=== PATIENT | female | born 1995 ===

== ENCOUNTER 2023-12-23 18:41 | Outpatient (REF) | payer MEDICAID, SELFPAY ==
--- OUTSIDE RECORDS SUMMARY | 2023-12-23 18:46 | XMS_ITS | Encounter Summary ---
Author Organization [facility] Address [address] [place] [address] Care Team Providers Care Quality Systems Engineer Name Role Phone Latonya Rey MD Primary Care Provid er Encounter Details Date Type Department Care Team (Late st Contact Info) Description 02/28/2020 Lab Requisition [facility] Pathology & Laboratory Medicine - [facility] [address] [place] [address] [address] [phone] Contact with and (suspected) exposure to other viral communicable diseases Social History Tobacco Use Types Packs/Day Years Used Date Smoking Tobacco: Never Assessed Sex and Gender Information Value Date Recorded Sex Assigned at Not on file Gender Identity Not on file Sexual Orientation Not on file documented as of this encounter Plan of Treatment Not on file documented as of this encounter Procedures Procedure Name Priority Date/Time Associated Diagnosis Comments DO NOT ORDER STANDALONE - BROAD COVID TEST Today 02/28/2020 17:30 EST Contact with and (suspected) exposure to other viral communicable diseases COVID-19 TESTING Today 02/28/2020 17:3 0 EST Contact with and (suspected) exposure to other viral communicable diseases documented in this encounter Results * DO NOT ORDER STANDALONE - BROAD COVID TEST (02/28/2020 17:30 EST) COVID-19 rt-PCR Result NEGATIVE Negative 03/01/2020 16:25 EST [facility] Comment: 2019-novel Coronavirus (2019-nCoV) not detected by the qRT-PCR assay. Consider testing for other respiratory viruses or re-collecting for 2019-nCoV testing. Note: Optimum timing for peak viral levels during infections caused by 2019-nCoV have not been determined. Collection of multiple specimens from the same patient may be necessary to detect the virus. Limitations Positive results are indicative of active infection with SARS-CoV-2 but do not rule out bacterial infection or co-infection with other viruses. The agent detected may not be the definite cause of disease. In addition, detection of viral RNA may not indicate the presence of infectious virus or that SARS-CoV-2 is the causative agent for clinical symptoms. Negative results do not preclude SARS-CoV-2 infection and should not be used as the sole basis for patient management decisions. Negative results must be combined with clinical observations, patient history, and epidemiological information. False negative results may also occur if amplification inhibitors are present in the specimen or if inadequate numbers of organisms are present in the specimen. Optimum specimen types and timing for peak viral levels during infections caused by SARS-CoV-2 have not been fully determined. Collection of multiple specimens (types and time points) from the same patient may be necessary to detect the virus. The test was validated for use with upper respiratory specimens obtained via nasopharyngeal or oropharyngeal swabs in VTM, UTM, M4, M5, M6, saline, and MTM media. The performance of this test has not been established for other specimens. Specimens collected using other FDA recommended Specimen Collection Materials listed in the FDA COVID-19 [employer] communication (June 21, 2019) are processed with the caveat that they were not all validated for use with this test and the result must be interpreted in this context. Furthermore, a false negative results may occur if a specimen is improperly collected, transported or handled. If the virus mutates in the RT-PCR target region, SARS-CoV-2 may not be detected or may be detected less predictably. Inhibitors or other types of interference may produce a false negative result. An interference study evaluating the effect of common cold medications was not performed. This test is not FDA-cleared but its performance characteristics were established by our CLIA-certified, CAP-accredited, high complexity laboratory in accordance with CLIA regulations, [employer] (CAP) guidelines (Jun 14, 2019), and FDA guidance (May 26, 2019). This test is only for use under the Food and Drug Administration's Emergency Use Authorization. Swab ENTIRE NASOPHARYNX / Unknown 02/28/2020 17:30 EST 02/28/2020 23:06 EST Jagdish Hines [facility] MICROBIOLOGY - GENE RAL ORDERABLES [facility] [place], [place] * COVID-19 TESTING (02/28/2020 17:30 EST) COVID-19 rt-PCR Result NEGATIVE Negative 03/01/2020 16:25 EST [facility] Comment: 2019-novel Coronavirus (2019-nCoV) not detected by the qRT-PCR assay. Consider testing for other respiratory viruses or re-collecting for 2019-nCoV testing. Note: Optimum timing for peak viral levels during infections caused by 2019-nCoV have not been determined. Collection of multiple specimens from the same patient may be necessary to detect the virus. Limitations Positive results are indicative of active infection with SARS-CoV-2 but do not rule out bacterial infection or co-infection with other viruses. The agent detected may not be the definite cause of disease. In addition, detection of viral RNA may not indicate the presence of infectious virus or that SARS-CoV-2 is the causative agent for clinical symptoms. Negative results do not preclude SARS-CoV-2 infection and should not be used as the sole basis for patient management decisions. Negative results must be combined with clinical observations, patient history, and epidemiological information. False negative results may also occur if amplification inhibitors are present in the specimen or if inadequate numbers of organisms are present in the specimen. Optimum specimen types and timing for peak viral levels during infections caused by SARS-CoV-2 have not been fully determined. Collection of multiple specimens (types and time points) from the same patient may be necessary to detect the virus. The test was validated for use with upper respiratory specimens obtained via nasopharyngeal or oropharyngeal swabs in VTM, UTM, M4, M5, M6, saline, and MTM media. The performance of this test has not been established for other specimens. Specimens collected using other FDA recommended Specimen Collection Materials listed in the FDA COVID-19 [employer] communication (June 21, 2019) are processed with the caveat that they were not all validated for use with this test and the result must be interpreted in this context. Furthermore, a false negative results may occur if a specimen is improperly collected, transported or handled. If the virus mutates in the RT-PCR target region, SARS-CoV-2 may not be detected or may be detected less predictably. Inhibitors or other types of interference may produce a false negative result. An interference study evaluating the effect of common cold medications was not performed. This test is not FDA-cleared but its performance characteristics were established by our CLIA-certified, CAP-accredited, high complexity laboratory in accordance with CLIA regulations, [employer] (CAP) guidelines (Jun 14, 2019), and FDA guidance (May 26, 2019). This test is only for use under the Food and Drug Administration's Emergency Use Authorization. Performing Lab [facility] 03/01/2020 16:25 EST [facility] Swab ENTIRE NASOPHARYNX / Unknown 02/28/2020 17:30 EST 02/28/2020 23:06 EST Jagdish Hines [facility] MICROBIOLOGY - [facility] ORDERABLES [facility] [address] [place] [address] [facility] [place], [place] documented in this encounter Visit Diagnoses Diagnosis Contact with and (suspected) exposure to other viral communicable diseases documented in this encounter Care Teams Quality Systems Engineer Relationship Specialty Start Date End Date Latonya Rey MD [address] [place] [id number] PCP - General 02/23/16 documented as of this encounter
--- OUTSIDE RECORDS SUMMARY | 2023-12-23 18:46 | XMS_ITS | Referral Summary ---
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 On OCPs x 5-6 months, periods +, not tolerating OCPs, stoped. Hypothalamic amenorrhea. Low BMI. ? Eating disorder, denies Celiac disease 08/17/2010 Overview: Not tested, symptomatic when exposed to gluten. Social History Tobacco Use Types Packs/Day Years Used Date Smoking Tobacco: Never Assessed Sex and Gender Information Value Date Recorded Sex Assigned at Not on file Gender Identity Not on file Sexual Orientation Not on file Last Filed Vital Signs Vital Sign Reading Time Taken Comments Blood Pressure 125/65 08/17/2010 1427 EDT Pulse 82 08/17/2010 1427 EDT Temperature - - Respiratory Rate - - Oxygen Saturation - - Inhaled Oxygen Concentration - - Weight 41.3 kg (91 lb 0.8 oz) 08/17/2010 1427 ED T Height 159.3 cm (5' 2.72) 08/17/2010 1427 EDT Body Mass Index 16.27 08/17/2010 1427 EDT Plan of Treatment Not on file Care Teams Silo Filler Relationship Specialty Start Date End Date Latonya Rey MD [address] [place] [address] PCP - General 02/23/16
--- OUTSIDE RECORDS SUMMARY | 2023-12-23 18:46 | XMS_ITS | Clinical Summary ---
Author Organization [facility] Address [address] [place] [id number] Care Team Providers Care Specialty Department Supervisor Name Role Phone Latonya Rey MD Primary [...] Not tested, symptomatic when exposed to gluten. Family History Medical History Relation Comments Celiac Disease Brother Celiac Disease Father Heart Attack Under 50 Maternal Grandmother at 43 High Blood Pressure Maternal Grandmother Thyroid Disease Maternal Grandmother ? High Blood Pressure Mother Infertility Mother Miscarriages / Stillbirths Mother Diabetes Other MGGM, MGGF T? Short Stature Other P second aunt Celiac Disease Paternal Aunt Celiac Disease Paternal Grandfather Celiac Disease Sister Elevated Lipids Neg Hx Menstrual Irregularity Neg Hx Pituitary Adenoma Neg Hx Prolactinoma Neg Hx SLE Neg Hx Relation Status Comments Brother Alive Father Alive Maternal Grandmother Mother Alive Other Paternal Aunt Paternal Grandfather Sister Alive Social History Tobacco Use Types Packs/Day Years Used Date Smoking Tobacco: Never Assessed Sex and Gender Information Value Date Recorded Sex Assigned at Not on file Gender Identity Not on file Sexual Orientation Not on file Obstetrics History Last Filed Vital Signs Vital Sign Reading [...] 16.27 08/17/2010 1427 EDT Plan of Treatment Health Maintenance Due Date Last Done Comments Hepatitis C Screen 1995 Hepatitis B Vaccine (1 of 3 - 19+ 3-dose series) 05/16 COVID-19 Vaccine (2022- season) 2022 Care Teams Specialty Department Supervisor Relationship Specialty Start Date End Date Latonya Rey MD [address] [place] [address] PCP - General 02/23/16
--- OUTSIDE RECORDS SUMMARY | 2023-12-23 18:46 | XMS_ITS | Encounter Summary ---
Author Organization [facility] Address [address] [place] [address] Care Team Providers Care Turf And Grounds Supervisor Name Role Phone Latonya Rey MD Primary Care Provid er Encounter Details Date Type Department Care Team (Late st Contact Info) Description 05/20/2020 Lab Requisition [facility] Pathology & [facility] - [facility] [address] [place] [address] Rand Linda MD [address] [place] [phone] Contact with and (suspected) exposure to other [...] Procedure Name Priority Date/Time Associated Diagnosis Comments ZZCOVID-19 TEST [facility] PCR Today 05/20/2020 13:35 EST Contact with and (suspected) exposure to other viral communicable diseases COVID-19 TESTING Today 05/20/2020 13:3 5 EST Contact with and (suspected) exposure to other viral communicable diseases documented in this encounter Results * COVID-19 TEST [facility] PCR (05/20/2020 13:35 EST) Swab ENTIRE NASOPHARYNX / Unknown 05/20/2020 13:35 EST 05/20/2020 22:07 EST Rand Linda MD MICROBIOLOGY - GENERAL ORDERABLES Performing Organization Address [facility] Co de Phone Number [facility] [address] [place] [address] * COVID-19 TESTING (05/20/2020 13:35 EST) COVID-19 rt-PCR Result Negative Negative 05/21/2020 15:21 EST [facility] Comment: This test has not been FDA cleared or approved. This test has been authorized by FDA under an EUA for use by authorized laboratories. This test has been authorized only for detection of nucleic acid from 2019-nCoV, not for any other viruses or pathogens. This test is only authorized for the duration of the declaration that circumstances exist justifying the authorization of emergency use of in vitro diagnostic tests for detection and/or diagnosis of 2019-nCoV under section 564(b)(1) of Act, 21 U.S.C ?? 360bbb-3(b) (1), unless the authorization is terminated or revoked sooner. Negative results do not preclude 2019-nCoV infection and should not be used as the sole basis for treatment or other patient management decisions. Negative results must be combined with clinical observations, patient history, and epidemiological information. Testing was performed using the salvatore SARS-CoV-2 assay ([employer] on the Salvatore 6800 System Performing Lab Salvatore [address] [facility] 05/21/2020 15:21 EST [facility] Swab ENTIRE NASOPHARYNX / Unknown 05/20/2020 13:35 EST 05/20/2020 22:07 EST Rand Linda MD MICROBIOLOGY - GENERAL ORDERABLES Performing Organization Address [facility] Co de Phone Number [facility] [address] [place] [address] documented in this encounter Visit Diagnoses Diagnosis Contact with and (suspected) exposure to other viral communicable diseases documented in this encounter Care Teams Turf And Grounds Supervisor Relationship Specialty Start Date End Date Latonya Rey MD [address] [place] [phone] PCP - General 02/23/16 documented as of this encounter
--- OUTSIDE RECORDS SUMMARY | 2023-12-23 18:47 | XMS_ITS | Encounter Summary ---
Author Organization [facility] Address [address] [place] [address] Care Team Providers Care State'S Attorney Name Role Phone Homa Man MD Primary Care Provide r Encounter Details Date Type Department Care Team (Late st Contact Info) Description 10/01/2013 Orders Only [facility] Urology [address] [place] [address] Priya Patterson RN Kidney stone (Primary Dx) Social History Tobacco Use Types Packs/Day Years Used Date Smoking Tobacco: Never Assessed Sex and Gender Information Value Date Recorded Sex Assigned at Not on file Gender Identity Not on file Sexual Orientation Not on file documented as of this encounter Plan of Treatment Not on file documented as of this encounter Visit Diagnoses Diagnosis Kidney stone- Primary Calculus of kidney documented in this encounter Care Teams State'S Attorney Relationship Specialty Start Date End Date Homa Man MD [address] [place] [phone] PCP - General 07/08/10 02/22/16 documented as of this encounter
--- OUTSIDE RECORDS SUMMARY | 2023-12-23 18:47 | XMS_ITS | Encounter Summary ---
Author Organization [facility] Address [address] [place] [address] Care Team Providers Care Shift Supervisor Rn Name Role Phone Homa Man MD Primary Care Provide r Encounter Details Date Type Department Care Team (Late st Contact Info) Description 01/21/2014 Results Only [facility] Laboratory Services - [facility] ([facility] [address] [place], [place] [phone] Skye Rey MD [address] [place] [phone] Social History Tobacco Use Types Packs/Day Years Used Date Smoking Tobacco: Never Assessed Sex and Gender Information Value Date Recorded Sex Assigned at Not on file Gender Identity Not on file Sexual Orientation Not on file documented as of this encounter Plan of Treatment Not on file documented as of this encounter Procedures Procedure Name Priority Date/Time Associated Diagnosis Comments PAP TEST- RESULT ONLY Routine 01/21/2014 0:00 EDT documented in this encounter Results * PAP TEST- RESULT ONLY (01/21/2014 0:00 EDT) Pathology Report: CYTOPATHOLOGY REPORT Reports generated via electronic interface contain original data; however they are lacking the format of the original report. Caution should be taken when reading/interpreti ng unformatted reports. Name: ? ZIGGY VALE ? Accession #: ? [id number] : ? 1995 (Age: 18) ??F ?Collect Date: ? 01/21/2014 Location: ? [facility] ? Receive Date: ? 01/23/2014 Provider: ?SKYE REY MD Copy to: ?DOMINGO MORIN CUT OFF MACHINE UNLOADER ? Specimen/Source: ?Pap Test, Cervix, ThinPrep Imaging System with manual evaluation Last Menstrual Period: ? 01/14/14 Hormonal/Contracep tive Status: ? Yes: Seasonique Other: ? Additional clinical information: First pap today ? SPECIMEN ADEQUACY ? Satisfactory for Evaluation - transformation zone component present GENERAL CATEGORIZATION ? Negative for Intraepithelial Lesion or Malignancy INTERPRETATION ? Reactive cellular changes associated with inflammation present (includes repair). Fungal organisms present morphologically consistent with Ayde species. ? Document reviewed and electronically signed by: ? CHERYL HILL MD ? Report Date: ??01/29/2014 17:24 End of Report [facility] 01/21/2014 01/23/2014 Skye Rey MD PATHOLOGY OR DERABLES [facility] [address] [place] [address] documented in this encounter Visit Diagnoses Not on filedocumented in this encounter Care Teams Shift Supervisor Rn Relationship Specialty Start Date End Date Homa Man MD [address] [place] [phone] PCP - General 07/08/10 02/22/16 documented as of this encounter
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
--- OUTSIDE RECORDS SUMMARY | 2023-12-23 18:47 | XMS_ITS | Encounter Summary ---
Author Organization [facility] Address [address] [place] [address] Care Team Providers Care Hot Tamale Man Name Role Phone Skye Rey MD Primary Care Provid er Encounter Details Date Type Department Care Team (Late st Contact Info) Description 04/27/2018 Results Only [facility] [phone] Skye Rey MD [address] [place] [address] [id number] Social History Tobacco Use Types Packs/Day Years [...] Diagnosis Comments PAP TEST- RESULT ONLY Routine 04/27/2018 0:00 EST documented in this encounter Results * PAP TEST- RESULT ONLY (04/27/2018 0:00 EST) Pathology Report: CYTOPATHOLOGY REPORT Reports generated via electronic interface contain original data; however they are lacking the format of the original report. Caution should be taken when reading/interpreti ng unformatted reports. Name: ? ZIGGY VALE ? Accession #: ? [id number] : ? 1995 (Age: 22) ??F ?Collect Date: ? 04/27/2018 Location: ? [facility] ? Receive Date: ? 04/28/2018 Provider: ?SKYE REY MD Copy to: ? Specimen/Source: ?Pap Test, Cervix, ThinPrep Imaging System with manual evaluation Last Menstrual Period: ? 03/26/18 Hormonal/Contracep tive Status: ? Control Pills Previous Gynecologic Pathology: ? LSIL: LGSIL Treatment History: ? Colposcopy LEEP Other: ? Additional clinical information: Z00.00 Z12.4 ? SPECIMEN ADEQUACY ? Satisfactory for Evaluation - transformation zone component present GENERAL CATEGORIZATION ? Negative for Intraepithelial Lesion or Malignancy ? Document reviewed and electronically signed by: ? XIMENA Dash(ASCP) ? Report Date: ??05/05/2018 13:34 End of Report [facility] 04/27/2018 04/28/2018 Skye Rey MD PATHOLOGY OR DERABLES Performing Organization Address [facility]/State/[facility] Co de Phone Number [facility] [address] [place] [address] documented in this encounter Visit Diagnoses Not on filedocumented in this encounter Care Teams Hot Tamale Man Relationship Specialty Start Date End Date Skye Rey MD [address] [place] [address] PCP - General 02/23/16 documented as of this encounter
--- OUTSIDE RECORDS SUMMARY | 2023-12-23 18:47 | XMS_ITS | Encounter Summary ---
Author Organization [facility] Address [address] [place] [address] Care Team Providers Care Marketing Ambassador Name Role Phone Skye Rey MD Primary Care Provid er Encounter Details Date Type Department Care Team (Late st Contact Info) Description 11/15/2016 Results Only [facility] [phone] Skye Rey MD [address] [place] [address] [phone] Social History Tobacco Use Types Packs/Day Years [...] Diagnosis Comments PAP TEST- RESULT ONLY Routine 11/15/2016 0:00 EDT documented in this encounter Results * PAP TEST- RESULT ONLY (11/15/2016 0:00 EDT) Pathology Report: CYTOPATHOLOGY REPORT Reports generated via electronic interface contain original data; however they are lacking the format of the original report. Caution should be taken when reading/interpreti ng unformatted reports. Name: ? ZIGGY VALE ? Accession #: ? [id number] : ? 1995 (Age: 21) ??F ?Collect Date: ? 11/15/2016 Location: ? [facility] ? Receive Date: ? 11/17/2016 Provider: ?SKYE REY MD Copy to: ? Specimen/Source: ?Pap Test, Cervix, ThinPrep Imaging System with manual evaluation Last Menstrual Period: ? 10/31/2016 Hormonal/Contracep tive Status: ? Yes Previous Gynecologic Pathology: ? LSIL: LGSIL Treatment History: ? Colposcopy ? SPECIMEN ADEQUACY ? Satisfactory for Evaluation - transformation zone component present GENERAL CATEGORIZATION ? Epithelial Cell Abnormality INTERPRETATION ? Squamous Cell Abnormality - Low grade squamous intraepithelial lesion (LSIL). EDUCATIONAL NOTES/RECOMMENDATI ONS ? [facility] recommends following ASCCP's 2012 Updated Consensus Guidelines for the Management of Abnormal Cervical Cancer Screening Tests and Cancer Precursors (JLGTD, 2013; 17(5):S1-S27). ??Consensus guidelines are available online at www.asccp.org. ? Document reviewed and electronically signed by: ? CECILE MANE MD ? Report Date: ??11/26/2016 11:13 End of Report [facility] 11/15/2016 11/17/2016 Skye Rey MD PATHOLOGY OR DERABLES Performing Organization Address City/State/[facility] Co de Phone Number [facility] [address] [place] [address] documented in this encounter Visit Diagnoses Not on filedocumented in this encounter Care Teams Marketing Ambassador Relationship Specialty Start Date End Date Skye Rey MD [address] [place] [address] PCP - General 02/23/16 documented as of this encounter
--- OUTSIDE RECORDS SUMMARY | 2023-12-23 18:47 | XMS_ITS | Encounter Summary ---
Author Organization [facility] Address [address] [place] [address] Care Team Providers Care Test Lead Name Role Phone Skye Rey MD Primary Care Provid er Encounter Details Date Type Department Care Team (Late st Contact Info) Description 02/14/[address] [facility] [phone] Skye Rey MD [address] [place] [address] [phone] Social History Tobacco Use Types Packs/Day Years [...] Diagnosis Comments PAP TEST- RESULT ONLY Routine 02/14/2017 0:00 EST documented in this encounter Results * PAP TEST- RESULT ONLY (02/14/2017 0:00 EST) Pathology Report: CYTOPATHOLOGY REPORT Reports generated via electronic interface contain original data; however they are lacking the format of the original report. Caution should be taken when reading/interpreti ng unformatted reports. Name: ? ZIGGY VALE ? Accession #: ? [id number] : ? 1995 (Age: 21) ??F ?Collect Date: ? 02/14/2017 Location: ? [facility] ? Receive Date: ? 02/18/2017 Provider: ?SKYE REY MD Copy to: ?GEORGE ROMAN DO ? Specimen/Source: ?Pap Test, Cervix, ThinPrep Imaging System with manual evaluation Last Menstrual Period: ? 01/26/2017 Hormonal/Contracep tive Status: ? Control Pills Previous Gynecologic Pathology: ? LSIL: LGSIL Treatment History: ? Colposcopy ? SPECIMEN ADEQUACY ? Satisfactory for Evaluation - transformation zone component present GENERAL CATEGORIZATION ? Epithelial Cell Abnormality INTERPRETATION ? Squamous Cell Abnormality - Low grade squamous intraepithelial lesion (LSIL). EDUCATIONAL NOTES/RECOMMENDATI ONS ? [facility] recommends following ASCCP's 2012 Updated Consensus Guidelines for the Management of Abnormal Cervical Cancer Screening Tests and Cancer Precursors (JLGTD, 2013; 17(5):S1-S27). ??Consensus guidelines are available online at www.asccp.org. ? Document reviewed and electronically signed by: ? DANYA QUILES MD ? Report Date: ??03/03/2017 08:47 End of Report [facility] 02/14/2017 02/18/2017 Skye Rey MD PATHOLOGY OR DERABLES Performing Organization Address City/State/[facility] Co de Phone Number [facility] [address] [place] [address] documented in this encounter Visit Diagnoses Not on filedocumented in this encounter Care Teams Test Lead Relationship Specialty Start Date End Date Skye Rey MD [address] [place] [phone] PCP - General 02/23/16 documented as of this encounter
--- OUTSIDE RECORDS SUMMARY | 2023-12-23 18:47 | XMS_ITS | Encounter Summary ---
Author Organization [facility] Address [address] [place] [address] Care Team Providers Care Tin Whiz Machine Operator Name Role Phone Homa Man MD Primary Care Provide r Reason for Visit * Reason Comments Amenorrhea Encounter Details Date Type Department Care Team (Latest Contact Info) Description 08/17/2010 14:30 EDT Office Visit [facility] Pediatric Endocrinology - [address] [address] Afia Burgos MD [address] [address] Dysmenorrhea in the adolescent (Primary Dx) Social History Tobacco Use Types Packs/Day Years Used Date Smoking Tobacco: Never Assessed Sex and Gender Information Value Date Recorded Sex Assigned at Not on file Gender Identity Not on file Sexual Orientation Not on file documented as of this encounter Last Filed Vital Signs Vital Sign Reading Time Taken Comments Blood Pressure 125/65 08/17/2010 1427 EDT Pulse 82 08/17/2010 1427 EDT Temperature - - Respiratory Rate - - Oxygen Saturation - - Inhaled Oxygen Concentration - - Weight 41.3 kg (91 lb 0.8 oz) 08/17/2010 1427 ED T Height 159.3 cm (5' 2.72) 08/17/2010 1427 EDT Body Mass Index 16.27 08/17/2010 1427 EDT Body Mass Index Percentile 1.00% 08/17/2010 142 7 EDT Growth Chart: [facility] (Girls, 2- 20 Years) documented in this encounter Patient Instructions * Patient Instructions* Afia Stuart MD - 08/17/2010 15:03 EDT For possible vitamin D insuficiency: 1000 IU/day of vitamin D and 1200 mg of calcium/day for 2-4 months and afterwards lower vitamin D to 400-600 IU/day. documented in this encounter Progress Notes * Afia Stuart MD - 08/18/2010 0016 EDT Pediatric Endocrinology Consult Patient Identification: 15 y.o. 3 m.o. old female Reason for consultation: primary amenorrhea Date of service: 08/17/2010 Requesting Provider: Homa Man Primary Care Provider: HOMA MAN MD History obtained from: patient and mother HPI: Raquel was seen today for initial consultation with a chief complain of primary amenorrhea. Raquel, who has been always of a petite size and tiny (underweight for height), recalls breast development starting around age 13 years. Last fall (about 1.5 years post thelarche) she was started on OCPs due to lack of spontaneous menstrual bleeding. She tried 2-3 different OCPs within 5-6 months, was bleeding as expected when on placebo pills. She did not tolerate OCPs (does not recall which one were used); had nausea, headaches and dizziness so she stopped taking them in April 2010, hashad no menstrual bleeding since. Raquel denies difficulties with acne, no excessive facial or body hair, denies galactorrhea. Prior to OCPs start, Raquel tried to gained weight with some dietary changes, such as protein shakes, eating more fat and carbs, with no positive results. She reports about 10 lb weight gain with OCP start. As per mom, Raquel has a good appetite. She typically eats 3 meals daily and snacks constantly through the day. Her portions seems appropriate for her age. She drinks 1 glass of milk/day and eats alot of diary products through the day. Raquel denies being afraid to gain weight, is happy with her current weight but would not mind to gain a few more pounds if it may help with her menstrual cycles. She denies feeling guilty after eating, denies inducing vomiting, she does not exercise excessively. She has been active all year round with snowboarding, horse back riding, riding the bike. She, as well as other family members, has been on gluten free diet. She was never tested but once exposed to gluten, she becomes sick. She used to have a significant abdominal pain prior to excludingwheat from her diet. She has regular bowel movements daily, no diarrhea or constipation. Review of Systems: A ten point review of systems was performed and was negative except for: headaches: severe last summer, head CT done with normal results; seen by a chiropractor with resolution of headaches; headaches used to wake her up from the sleep, would occur randomly, typically were not associated with nausea, emesis or visual changes; rest, fluid intake typically bring relief, oc casionally pain medication was needed; on and off she still gets the headaches, maybe once a week, usually more when is due to be seen by a chiropractor. hands turn blue, fell cold, not painful, look bruised difficulty sleeping: takes her a long time to fall asleep, waked up at night for no reason and sometimes it takes her hours to fall back asleep eats a lot of salt, longstanding; denies dizziness (used to feel dizzy while taking OCPs), deniesincreased skin pigmentation, looks tanned, has been working outside a lot, gardening Denies lack of smell. Problem List Patient Active Problem List Diagnoses Code ??? Dysmenorrhea in the adolescent 625.3AD ??? Celiac disease 579.0 Past Medical History: History reviewed. No pertinent past medical history. History: No history on file. Medications: No current outpatient prescriptions on file. Allergies: Gluten protein Social History: Living Conditions ??? Lives with Parents Weekdays ??? Education Grade 12 ??? Home Schooled Yes ??? Reported academic performance Excellent Family History: family history includes Celiac Disease in her brother, father, paternal aunt, paternal grandfather,and sister; Diabetes in an other family member; Heart Attack Under 50 in her maternal grandmother; High Blood Pressure in her maternal grandmother and mother; Infertility in her mother; Miscarriages / Stillbirths in her mother; Short Stature in an other family member; and Thyroid Disease in her maternal grandmother. There is no history of Pituitary Adenoma, and Prolactinoma, and Menstrual Irregularity, and Elevated Lipids, and SLE, . Physical Exam: Vitals: BP 125/65 Pulse 82 Ht 159.3 cm (62.72) Wt 41.3 kg (91 lb 0.8 oz) BMI 16.27 kg/m2 Height: 159.3 cm (62.72) (28.50%) Weight: 41.3 kg (91 lb 0.8 oz) (0.76%) Body mass index is 16.27 kg/(m^2). 0.99% of growth percentile based on BMI-for-age. General Appearance: comfortable, well-hydrated, in no apparent distress and petite, malnurised Dysmorphisms: none appreciated Head: normocephalic ENT: moist mucous membranes, oropharnyx clear and no oral mucosa lesions, no hyperpigmented mucosa Eyes: EOMI, TRISTIN and normal undilated fundoscopy Thyroid: no palpable goiter, no palpable nodularity and nontender Lymphatic: no palpable lymphadenopathy of neck Respiratory: clear, no wheezes or crackles and good air entry bilaterally Cardiovascular: RRR, normal S1 and S2 and no murmur Gastrointestinal: benign, soft, non-tender, no palpable masses and no hepatosplenomegaly Neurologic: cranial nerves II-XII intact, 2+ DTRs, no tremor and good tone Musculoskeletal: no appreciable bony deformities, no clubbing and no scoliosis Skin: normal temperature, normal texture, normal turgor, no hirsutism, no acne, no hairline recession, no hyperpigmentation, no striae and no JL spots Sexual Development: breasts Ankit stage 4 and pubic hair Ankit stage 5 Data Review/Investigations: copy of previous investigations obtained, reviewed and scanned into medical record significant results include: Date 12/23/09 TSH 0.74 (0.47-4.68) FT4 1.02 CMP normal (Na 138, K 4.5, Cl 102, HCO3 26, Ca 9.8) LH 2.9, FSH 7.4 prolactin 4.3 CBC normal Previous Growth Data: no prior growth data available at time of consult Assessment: 15 y.o. 3 m.o. 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 Raquel has no S&S suggestive of androgen excess, has no galactorrhea, her prolactin level was normal, she was biochemically euthyroid as of 11/2009. She had no spontaneous menstrual bleeding, responded well to OCPs confirming no anatomic abnormalities of genital tract but has not been tolerating OCPs well. She is significantly underweight, denies behavior suggestive of eating disorder. Mom reports being similarly petite when Raquel's age (she has had regular periods). 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 Suggestions/Plan: Investigations: none at this time Topics reviewed today: strategies to optimize caloric intake, I encouraged family to make an appointment with a assistant teacher primary (if no one available closer to their home, mom will call and set an appointment with the assistant teacher primary here), to bring 3-4 days food diary for the appointment recommended need at a minimum 4 menstrual cycles / year for bone and uterine health bone health and Ca and vitamin D intake Medications prescribed: recommended restarting OCPs, should try to stay on each for 3 months, side effects usually improve overtime Disposition: follow up PRN I spent a total of 60 minutes in face to face time with this patient and 50 minutes of that time was spent in counseling and coordination of care as described in the progress note. Afia Stuart MD, MD 08/17/2010 23:18 documented in this encounter Plan of Treatment Not on file documented as of this encounter Visit Diagnoses Diagnosis Dysmenorrhea in the adolescent- Primary Dysmenorrhea documented in this encounter Care Teams Tin Whiz Machine Operator Relationship Specialty Start Date End Date Homa Man MD [address] [place] [id number] PCP - General 07/08/10 02/22/16 documented as of this encounter
--- OUTSIDE RECORDS SUMMARY | 2023-12-23 18:47 | XMS_ITS | Encounter Summary ---
Author Organization [facility] Address [address] [place] [address] Care Team Providers Care Cow Washer Name Role Phone Skye Rey MD Primary Care Provid er Encounter Details Date Type Department Care Team (Late st Contact Info) Description 09/15/2017 Results Only [facility] [phone] Skye Rey MD [address] [place] [phone] Social History Tobacco Use Types Packs/Day Years [...] Diagnosis Comments PAP TEST- RESULT ONLY Routine 09/15/2017 0:00 EDT documented in this encounter Results * PAP TEST- RESULT ONLY (09/15/2017 0:00 EDT) Pathology Report: CYTOPATHOLOGY REPORT Reports generated via electronic interface contain original data; however they are lacking the format of the original report. Caution should be taken when reading/interpreti ng unformatted reports. Name: ? ZIGGY VALE ? Accession #: ? [id number] : ? 1995 (Age: 22) ??F ?Collect Date: ? 09/15/2017 Location: ? [facility] ? Receive Date: ? 09/16/2017 Provider: ?SKYE REY MD Copy to: ?GEORGE ROMAN DO ? Specimen/Source: ?Pap Test, Cervix, ThinPrep Imaging System with manual evaluation Last Menstrual Period: ? 09/04/17 Previous Gynecologic Pathology: ? LSIL: LGSIL Treatment History: ? LEEP: 04/21/17 Other: ? Additional clinical information: Z00.00 Z12.4 ? SPECIMEN ADEQUACY ? Satisfactory for Evaluation - transformation zone component absent GENERAL CATEGORIZATION ? Negative for Intraepithelial Lesion or Malignancy ? Document reviewed and electronically signed by: ? XIMENA Gomez(ASCP) ? Report Date: ??09/23/2017 16:20 End of Report [facility] 09/15/2017 09/16/2017 Skye Rey MD PATHOLOGY OR DERABLES Performing Organization Address City/State/[facility] Co de Phone Number [facility] [address] [place] [address] documented in this encounter Visit Diagnoses Not on filedocumented in this encounter Care Teams Cow Washer Relationship Specialty Start Date End Date Skye Rey MD [address] [place] [address] PCP - General 02/23/16 documented as of this encounter
--- OUTSIDE RECORDS SUMMARY | 2023-12-23 18:47 | XMS_ITS | Encounter Summary ---
Author Organization [facility] Address [address] [place] [address] Care Team Providers Care Brake Engineer Name Role Phone Chucho Roberts MD Primary Care Provider [phone] Encounter Details Date Type Department Care Team (Latest Contact Info) Description 12/25/2009 8:43 EDT - 12/25/2009 8:44 EDT Hospital Encounter [facility] - Other [address] [place] [address] Nicholas Mclaughlin, MERT [address] [place] [address] Discharge Disposition: Home or Self Care Social History Tobacco Use Types Packs/Day Years Used Date Smoking Tobacco: Never Assessed Sex and Gender Information Value Date Recorded Sex Assigned at Not on file Gender Identity Not on file Sexual Orientation Not on file documented as of this encounter Discharge Disposition Disposition Code Departure Means Destination Home or Self Care documented in this encounter Plan of Treatment Not on file documented as of this encounter Visit Diagnoses Not on filedocumented in this encounter Care Teams Brake Engineer Relationship Specialty Start Date End Date Chucho Roberts MD [address] [place] [address] PCP - General 12/25/09 07/07/10 documented as of this encounter
--- OUTSIDE RECORDS SUMMARY | 2023-12-23 18:47 | XMS_ITS | Encounter Summary ---
Author Organization [facility] Address [address] [place] [address] Care Team Providers Care Inhalation Therapy Teacher Name Role Phone Homa Man MD Primary Care Provide r Encounter Details Date Type Department Care Team (Late st Contact Info) Description 02/12/2016 Results Only [facility] [phone] Skye Rey MD [address] [place] [id number] Social History Tobacco Use Types Packs/Day Years [...] Diagnosis Comments PAP TEST- RESULT ONLY Routine 02/12/2016 0:00 EST documented in this encounter Results * PAP TEST- RESULT ONLY (02/12/2016 0:00 EST) Pathology Report: CYTOPATHOLOGY REPORT Reports generated via electronic interface contain original data; however they are lacking the format of the original report. Caution should be taken when reading/interpreti ng unformatted reports. Name: ? ZIGGY VALE ? Accession #: ? [id number] : ? 1995 (Age: 20) ??F ?Collect Date: ? 02/12/2016 Location: ? [facility] ? Receive Date: ? 02/13/2016 Provider: ?SKYE REY MD Copy to: ?KELI BENSON MD ? Specimen/Source: ?Pap Test, Endocervix, ThinPrep Imaging System with manual evaluation Last Menstrual Period: ? 02/01/16 Hormonal/Contracep tive Status: ? Control Pills Treatment History: ? None ? SPECIMEN ADEQUACY ? Satisfactory for Evaluation - transformation zone component present GENERAL CATEGORIZATION ? Epithelial Cell Abnormality INTERPRETATION ? Squamous Cell Abnormality - Low grade squamous intraepithelial lesion (LSIL). EDUCATIONAL NOTES/RECOMMENDATI ONS ? [facility] recommends following ASCCP's 2012 Updated Consensus Guidelines for the Management of Abnormal Cervical Cancer Screening Tests and Cancer Precursors (JLGTD, 2013; 17(5):S1-S27). ??Consensus guidelines are available online at www.asccp.org. ? Document reviewed and electronically signed by: ? FRANCESCO OREILLY MD ? Report Date: ??02/20/2016 12:32 End of Report [facility] 02/12/2016 02/13/2016 Skye Rey MD PATHOLOGY OR DERABLES [facility] [address] [place] [address] documented in this encounter Visit Diagnoses Not on filedocumented in this encounter Care Teams Inhalation Therapy Teacher Relationship Specialty Start Date End Date Homa Man MD [address] [place] [phone] PCP - General 4/13/11 11/27/16 documented as of this encounter
--- OUTSIDE RECORDS SUMMARY | 2023-12-23 18:47 | XMS_ITS | Encounter Summary ---
Author Organization [facility] Address [address] [place] [address] Care Team Providers Care Community Health Outreach Worker Name Role Phone Homa Man MD Primary Care Provide r Encounter Details Date Type Department Care Team (Late st Contact Info) Description 02/06/2015 Results Only [facility] [phone] Skye Rey MD [address] [place] [phone] Social History Tobacco Use Types Packs/Day Years [...] Diagnosis Comments PAP TEST- RESULT ONLY Routine 02/06/2015 0:00 EST documented in this encounter Results * PAP TEST- RESULT ONLY (02/06/2015 0:00 EST) Pathology Report: CYTOPATHOLOGY REPORT Reports generated via electronic interface contain original data; however they are lacking the format of the original report. Caution should be taken when reading/interpreti ng unformatted reports. Name: ? ZIGGY VALE ? Accession #: ? [id number] : ? 1995 (Age: 19) ??F ?Collect Date: ? 02/06/2015 Location: ? [facility] ? Receive Date: ? 02/07/2015 Provider: ?SKYE REY MD Copy to: ?KELI BENSON MD ? Specimen/Source: ?Pap Test, Endocervix, ThinPrep Imaging System with manual evaluation Last Menstrual Period: ? 01/17/15 Hormonal/Contracep tive Status: ? None Other: ? Additional clinical information: KEYBOARD TEACHER Clinical/Treatment History - none ? SPECIMEN ADEQUACY ? Satisfactory for Evaluation - transformation zone component present GENERAL CATEGORIZATION ? Negative for Intraepithelial Lesion or Malignancy INTERPRETATION ? Fungal organisms present morphologically consistent with Ayde species. ? Document reviewed and electronically signed by: ? Samira Reynaga, CT(ASCP)(IAC) ? Report Date: ??02/11/2015 17:04 End of Report [facility] 02/06/2015 02/07/2015 Skye Rey MD PATHOLOGY OR DERABLES Performing Organization Address City/State/[facility] Co de Phone Number [facility] [address] [place] [address] documented in this encounter Visit Diagnoses Not on filedocumented in this encounter Care Teams Community Health Outreach Worker Relationship Specialty Start Date End Date Homa Man MD [address] [place] [phone] PCP - General 07/08/10 02/22/16 documented as of this encounter
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
--- OUTSIDE RECORDS SUMMARY | 2023-12-23 18:47 | XMS_ITS ---
Author Organization Unknown Address [address] [place] [address] [phone] Phone Care Team Providers Care [employer] Superintendent Name Role Phone WIN Chan Attending Unavailable Results FERRITIN - Collect Date/Time : 07/29/2022 14:39 [facility] ID: [id number] - [id number] [address] [place] [address], [address] LOINC: 2276-4 Test Value Unit Reference Range Code Code System Flag FERRITIN 31 ng/mL L=8 H=388 2276-4 LOINC IRON - Collect Date/Time: 14:39 [facility] ID: [id number] - [id number] [address] [place] [address], [id number] LOINC: 2498-4 Test Value Unit Reference Range Code Code System Flag IRON 61 ug/dL L=35 H=150 2498-4 LOINC CBC W/ DIFFERENTIAL* - Colle ct Date/Time: 07/29/2022 14:39 [facility] ID: [id number] - [id number] [address] [place] [address], [address] LOINC: 19139-7 Test Value Unit Reference Range Code Code System Flag WBC 7.20 th/cmm L=5.00 H=10.00 6690-2 LOINC NEUT % 60.4 % L=40.0 H=80.0 LYMPH % 30.7 % L=10.0 H=50.0 MONO % 5.4 % L=2.0 H=12.0 88759-0 LOINC EOS % 2.8 % L=0.0 H=8.0 BASO % 0.4 % L=0.0 H=3.0 IG % 0.3 % L=0.0 H=1.1 2514-8 LOINC NRBC % 0.0 % L=0.0 H=0.0 80964-2 LOINC NEUT abs count 4.4 th/cmm L=1.6 H=8.4 751-8 LOINC LYMPH abs count 2.2 th/cmm L=1.5 H=4.0 731-0 LOINC MONO abs count 0.4 th/cmm L=0.2 H=1.0 742-7 LOINC EOS abs count 0.2 th/cmm L=0.0 H=0.5 711-2 LOINC BASO abs count 0.0 th/cmm L=0.0 H=0.2 704-7 LOINC IG abs count 0.0 th/cmm L=0.0 H=0.1 24027-7 LOINC NRBC abs count 0.0 mil/cmm L=0.0 H=0.0 80028-7 LOINC RBC 4.70 mil/cmm L=3.90 H=5.40 789-8 LOINC HEMOGLOBIN 13.9 gm/dL L=12.0 H=16.0 718-7 LOINC HEMATOCRIT 41 % L=37 H=47 4544-3 LOINC MCV 87 fL L=82 H=92 787-2 LOINC MCH 29.6 pg L=27.0 H=31.0 785-6 LOINC MCHC 34.0 % L=32.0 H=36.0 786-4 LOINC RDW-SD 38.5 fL L=39.0 H=49.0 788-0 LOINC L PLATELET COUNT 354 th/cmm L=150 H=450 777-3 LOINC SED RATE* - Collect Date/Kashif e: 07/29/2022 14:39 [facility] ID: [id number] - [id number] [address] [place], [place], [address] LOINC: 4537-7 Test Value Unit Reference Range Code Code System Flag SED. RATE 3 mm/hr L=0 H=20 4537-7 LOINC C REACTIVE PROTEIN HIGH SENS ITIVITY* - Collect Date/Time: 07/29/2022 14:39 [facility] ID: [id number] - [id number] [address] [place] [address], [address] LOINC: 67045-3 Test Value Unit Reference Range Code Code System Flag CRP-HIGH SENS. 2.65 mg/L L=0.00 H=3.00 69835-5 LOINC CRP-HIGH SENS 0.27 mg/dL L=0.00 H=0.30 75495-4 LOINC COMPREHENSIVE METABOLIC PANE L (CMP) - Collect Date/Time: 07/29/2022 14:39 [facility] ID: [id number] - [id number] [address] [place] [address], [address] LOINC: 88693-3 Test Value Unit Reference Range Code Code System Flag GLUCOSE 96 mg/dL L=70 H=116 2345-7 LOINC BUN 10 mg/dL L=6 H=25 3094-0 LOINC CREATININE 0.63 mg/dL L=0.51 H=0.95 2160-0 LOINC SODIUM SERUM 138 mmol/L L=136 H=145 2951-2 LOINC POTASSIUM SERUM 4.0 mmol/L L=3.4 H=5.2 2823-3 LOINC CHLORIDE SERUM 103 mmol/L L=96 H=110 2075-0 LOINC CARBON DIOXIDE (CO2) 28 mmol/L L=22 H=34 2028-9 LOINC ANION GAP 6.8 mmol/L 97211-1 LOINC CALCIUM SERUM 9.1 mg/dL L=8.2 H=10.2 43457-4 LOINC BILIRUBIN TOTAL 0.4 mg/dL L=0.0 H=1.3 1975-2 LOINC ALK. PHOS. 116 U/L L=46 H=116 6768-6 LOINC SGOT (AST) 19 U/L L=15 H=37 1920-8 LOINC SGPT (ALT) 22 U/L L=12 H=78 1742-6 LOINC TOTAL PROTEIN 7.9 gm/dL L=6.0 H=8.0 2885-2 LOINC ALBUMIN 4.1 gm/dL L=3.4 H=5.0 1751-7 LOINC AGE 27 years eGFR (non-Afr.Amer.) 112 mL/min 87766-8 LOINC eGFR (Afr-H[place]er) > 120 mL/min 62610-1 [facility] Social History Type Status Start Date End Date Code Code Syst em Smoking History Never smoker (Never Smoked) 053515680 SNOMED CT Sex Female Hospital Discharge Instructions Should you have any questions prior to discharge, please contact a member of your healthcare team. If you have left the hospital and have any questions, please contact your primary care physician. Reason For Referral No Data Found Allergies and Adverse Reactions Allergy Substance Reaction Severity Start Date Concern Status Co de Code System No Known Drug Allergies Active [id number] SNOMED-CT Plan of Treatment No Data Found Encounters Encounter Diagnosis Start Date Code Code Sys tem Localized eruption of skin 07/29/2022 [id number] S NOMED-CT Personal Care Team Section Performer Name Performer Role Active Date Inactive Da tye
--- OUTSIDE RECORDS SUMMARY | 2023-12-23 18:47 | XMS_ITS | Encounter Summary ---
Author Organization [facility] Address [address] [place] [address] Care Team Providers Care Proposal Lead Writer Name Role Phone Chucho Roberts MD Primary Care Provider Encounter Details Date Type Department Care Team (Late st Contact Info) Description 12/25/2009 Results Only [facility] Laboratory Services - [facility] ([facility]) [address], [place] [phone] Nicholas Mclaughlin [place] [address] [place], [place] [phone] Social History Tobacco Use Types Packs/Day Years Used Date Smoking Tobacco: Never Assessed Sex and Gender Information Value Date Recorded Sex Assigned at Not on file Gender Identity Not on file Sexual Orientation Not on file documented as of this encounter Plan of Treatment Not on file documented as of this encounter Procedures Procedure Name Priority Date/Time Associated Diagnosis Comments URINALYSIS WITH MICROSCOPIC IF POSITIVE Routine 12/25/2009 20:31 EDT UA REFLEX Routine 12/25/2009 20:31 EDT URINE CULTURE IF POSITIVE Routine 12/25/2009 20:31 EDT documented in this encounter Results * UA REFLEX (12/25/2009 20:31 EDT) UA Billing Microscopic not indicated. [facility] 12/25/2009 20:3 1 EDT 12/25/2009 20:31 EDT Nicholas Mclaughlin [place] URINALYSIS ORDERAB LES Performing Organization Address [facility] Co de Phone Number [facility] [address] [place] [address] * URINALYSIS (12/25/2009 20:31 EDT) Color, UA Yellow [facility] Clarity, UA Clear [facility] Glucose, UA Neg NEG [facility] Bilirubin, UA Neg NEG [facility] Ketones, UA Neg NEG [facility] Specific [place], Urine 1.010 1.001 - 1.035 [facility] Blood, UA Neg NEG [facility] pH, UA 7.0 4.6 - 8.0 [facility] Protein, UA Neg NEG [facility] Urobilinogen, UA 0.2 0.2 - 1.0 E.U./dl [facility] Nitrite, UA Neg NEG [facility] Leuk Esterase Neg NEG [facility] 12/25/2009 20:3 1 EDT 12/25/2009 20:31 EDT Nicholas Mclaughlin ND URINALYSIS ORDERAB LES Performing Organization Address [facility] Co de Phone Number [facility] [address] [place] [address] * CULTURE IF UA POSITIVE (12/25/2009 20:31 EDT) Culture if Indicated Culture not indicated by urinalysis results. [facility] 12/25/2009 20:3 1 EDT 12/25/2009 20:31 EDT Nicholas Mclaughlin [place] MICROBIOLOGY - GEN ERAL ORDERABLES Performing Organization Address [facility] Co de Phone Number [facility] [address] [place] [address] documented in this encounter Visit Diagnoses Not on filedocumented in this encounter Care Teams Proposal Lead Writer Relationship Specialty Start Date End Date Chucho Roberts MD [address] [place] [address] PCP - General 12/25/09 07/07/10 documented as of this encounter
== END 2023-12-23 18:42 | disposition home or self-care (01) ==
LOC: LBN 18:41
PROVIDERS: Visit Provider Physician Assistant Medical
DX: J02.9 Acute pharyngitis, unspecified (principal)
CPT/HCPCS: 87070